=== PATIENT | female | born 1990 | race Caucasian/White ===

== ENCOUNTER 2019-02-17 16:19 | Emergency (ER) | payer OTHER ==
[~2019-02-17] VITALS: Ht 162.6 cm; Wt 89.8 kg
[~2019-02-17 16:19] MED LIST: CLARITIN-D 241 EACH PO
== END 2019-02-17 19:47 | disposition home or self-care (01) ==
LOC: ER 16:19
DX: G44.209 Tension-type headache, unspecified, not intractable (principal)

== ENCOUNTER 2022-08-11 19:50 | Emergency (ER) | payer OTHER ==
[~2022-08-11] VITALS: Ht 157.5 cm; Wt 81.6 kg
[2022-08-11] MEDS ORDERED: LOSARTAN POTASS50 MG PO (22:01)
== END 2022-08-11 22:09 | disposition home or self-care (01) ==
LOC: ER 19:50
DX: I16.9 Hypertensive crisis, unspecified (principal)

== ENCOUNTER 2023-02-01 00:07 | Emergency (ER) | payer OTHER ==
[~2023-02-01] VITALS: Ht 157.5 cm; Wt 96.6 kg
[~2023-02-01 00:07] MED LIST changes: +LOSARTAN POTASS50 MG PO
[2023-02-01] MEDS ORDERED: TUSNEL LIQUID178 ML PO (01:57)
[2023-02-01] MEDS ORDERED: ZYRTEC10 M3 PO (01:57)
[2023-02-01] MEDS ORDERED: ZITHROMAX500 MG PO (01:57)
[2023-02-01] MEDS ORDERED: DOLOGEN CAPLET1 EACH PO (01:57)
== END 2023-02-01 03:01 | disposition home or self-care (01) ==
LOC: ER 00:07
DX: J10.1 Influenza due to other identified influenza virus with other respiratory manifestations (principal); B34.9 Viral infection, unspecified; Z20.822 Contact with and (suspected) exposure to COVID-19

== ENCOUNTER → 2023-11-30 | Emergency (ER) | payer OTHER ==
[~2023-11-30] VITALS: Ht 165.1 cm; Wt 93.0 kg
[~2023-11-30] MED LIST changes: +DOLOGEN CAPLET1 EACH PO; +TUSNEL LIQUID178 ML PO; +ZITHROMAX500 MG PO; +ZYRTEC10 M3 PO
== END | disposition left against medical advice (07) ==
LOC: ER 20:10
DX: Z53.21 Procedure and treatment not carried out due to patient leaving prior to being seen by health care provider (principal)